=== PATIENT | male | born 1935 | race Caucasian/White ===

== ENCOUNTER 2019-02-10 02:06 | Outpatient (CLI) | payer SELFPAY | END 2019-02-10 23:59 | disposition home or self-care (01) | LOC: HW VAS 02:06 | DX: Z13.6 Encounter for screening for cardiovascular disorders (principal) ==

== ENCOUNTER 2021-05-24 06:01 | Day surgery (SDC) | payer MEDICARE ==
[2021-05-23 15:34] LABS: BASOPHILS # (AUTO) 0.1 X10'3 (0-0.2); EOSINOPHILS # (AUTO) 0.3 X10'3 (0-0.9); EOSINOPHILS % (AUTO) 3.4 % (0-6); HEMATOCRIT 44.1 % (42.0-52.0); HEMOGLOBIN 14.7 g/dl (14.0-17.9); LYMPHOCYTES # (AUTO) 3.3 X10'3 (1.1-4.8); MEAN CORPUSCULAR HEMOGLOBIN 32.6 PG (27.0-31.0); MEAN CORPUSCULAR HGB CONC 33.4 g/dL (33.0-36.5); MEAN CORPUSCULAR VOLUME 97.4 FL (78-98); MEAN PLATELET VOLUME 7.5 FL (7.4-10.4); MONOCYTES # (AUTO) 0.9 X10'3 (0-0.9); NEUTROPHILS # (AUTO) 5.4 X10'3 (1.8-7.7); NEUTROPHILS % (AUTO) 53.6 % (42-75); PLATELET COUNT 272 X10'3 (140-440); RED BLOOD COUNT 4.53 X10'6 (4.70-6.10); RED CELL DISTRIBUTION WIDTH 13.4 % (11.5-14.5); WHITE BLOOD COUNT 10.1 X10'3 (4.5-11.0)
[2021-05-23 15:43] LABS: PARTIAL THROMBOPLASTIN TIME 28 SECONDS (22-32)
[2021-05-23 15:46] LABS: ALBUMIN 3.8 G/DL (3.4-5.0); ANION GAP 9 (8-16); BLOOD UREA NITROGEN 21 MG/DL (7-18); BUN/CREATININE RATIO 16.4 (5.4-32.0); CHLORIDE 103 MMOL/L (99-107); CREATININE 1.28 MG/DL (0.60-1.10); GLUCOSE 89 MG/DL (70-104); POTASSIUM 4.4 MMOL/L (3.5-5.1); SODIUM 139 MMOL/L (135-145); TOTAL CARBON DIOXIDE 26.6 MMOL/L (24-32); eGFR 53 ML/MIN
[~2021-05-24] VITALS: Ht 172.7 cm; Wt 71.0 kg
[2021-05-24] VITALS (13 sets, daily range): BP systolic 125–147; BP diastolic 67–79
[2021-05-24] MEDS ORDERED: normal saline 1,000 ML IV SCH (06:20)
[2021-05-24] MEDS ORDERED: SOTA80TA73 PO (06:46)
[2021-05-24] MEDS ORDERED: SIMV10TA98 PO (06:46)
[2021-05-24] MEDS ORDERED: ASCO-139 PO (06:46)
[2021-05-24] MEDS ORDERED: LOSA25TA96 PO (06:46)
[2021-05-24] MEDS ORDERED: ASPI-1265 PO (06:46)
[2021-05-24] MEDS ORDERED: OMEG-147 PO (06:46)
[2021-05-24] MEDS ORDERED: ERGO400C PO (06:46)
[2021-05-24] MEDS ORDERED: ceFAZolin 1000mg inj ONE (07:17)
[2021-05-24] MEDS ORDERED: LIDOcaine 1% w/EPI 1:100,000 30ml vial (MDV) ONE (07:17)
[2021-05-24] MEDS ORDERED: cefazolin/dext.iso 2gm/100ml 100 ML IV ONE (07:35)
[2021-05-24] MEDS ORDERED: fentaNYL/PF 50MCG/1 ML 2ML syringe ONE (07:57)
[2021-05-24] MEDS ORDERED: midazolam 1 mg/ML 2ml injection ONE (07:57)
[2021-05-24] MEDS ORDERED: iohexol 350 MG/ML 50ML vial IV ONE (08:21)
--- NOTE | 2021-05-24 09:30 | NUR ---
Report given to Melinda CALDERON. Patient back from procedure. Left upper chest dressing CDI with pressure dressing in place.
[2021-05-24] MEDS ORDERED: HYDROcodone/acetaminophen 10/325mg tab PO PRN (09:50)
[2021-05-24] MEDS ORDERED: HYDROcodone/acetaminophen 5mg/325mg tablet PO PRN (09:50)
[2021-05-24] MEDS ORDERED: vancomycin/NS 1 GM ADD-VANTAGE 250 ML X 1 DOSE IV ONE (11:00)
== END 2021-05-24 15:05 | disposition home or self-care (01) ==
LOC: SSTAY O 06:01
PROVIDERS: ATTEND Internal Medicine Cardiovascular Disease
DX: I49.5 Sick sinus syndrome (principal); I10 Essential (primary) hypertension; I48.0 Paroxysmal atrial fibrillation; E78.49 Other hyperlipidemia; M13.88 Other specified arthritis, other site; F17.210 Nicotine dependence, cigarettes, uncomplicated; Z79.01 Long term (current) use of anticoagulants; Z79.82 Long term (current) use of aspirin; Z79.899 Other long term (current) drug therapy; Z85.828 Personal history of other malignant neoplasm of skin; Z98.890 Other specified postprocedural states
CPT/HCPCS: 33208; 71046; 80048; 85025; 85610; 85730; 93005; 99152; 99153; C1785; C1894; C1898; J0690; J2250; J3010; J3370; J7030; Q9967; A4620; A6258; A6449

== ENCOUNTER 2022-09-11 06:53 | Day surgery (SDC) | payer MEDICARE ==
[~2022-09-11] VITALS: Ht 172.7 cm; Wt 71.7 kg
[2022-09-11] VITALS (13 sets, daily range): BP systolic 105–150; BP diastolic 60–75
[~2022-09-11 06:53] MED LIST: ASCO-139 PO; ASPI-1265 PO; ERGO400C PO; LOSA25TA96 PO; OMEG-147 PO; SIMV10TA98 PO; SOTA80TA73 PO
[2022-09-11 07:55] LABS: BASOPHILS # (AUTO) 0.1 X10'3 (0-0.2); BASOPHILS % (AUTO) 1.1 % (0-1); EOSINOPHILS # (AUTO) 0.6 X10'3 (0-0.9); HEMATOCRIT 50.1 % (42.0-52.0); HEMOGLOBIN 16.5 g/dl (14.0-17.9); LYMPHOCYTES # (AUTO) 3.8 X10'3 (1.1-4.8); LYMPHOCYTES % (AUTO) 34.5 % (21-51); MEAN CORPUSCULAR HEMOGLOBIN 32.5 PG (27.0-31.0); MEAN CORPUSCULAR HGB CONC 32.9 g/dL (33.0-36.5); MEAN CORPUSCULAR VOLUME 98.8 FL (78-98); MEAN PLATELET VOLUME 7.2 FL (7.4-10.4); MONOCYTES # (AUTO) 1.1 X10'3 (0-0.9); MONOCYTES % (AUTO) 9.8 % (2-12); NEUTROPHILS # (AUTO) 5.5 X10'3 (1.8-7.7); NEUTROPHILS % (AUTO) 49.6 % (42-75); PLATELET COUNT 324 X10'3 (140-440); RED BLOOD COUNT 5.07 X10'6 (4.70-6.10); RED CELL DISTRIBUTION WIDTH 13.2 % (11.5-14.5); WHITE BLOOD COUNT 11.1 X10'3 (4.5-11.0)
[2022-09-11] MEDS ORDERED: diphenhydrAMINE 25mg capsule PO PRN (08:05)
[2022-09-11] MEDS ORDERED: LORazepam 0.5 MG tablet PO PRN (08:05)
[2022-09-11] MEDS ORDERED: normal saline 1,000 ML IV SCH (08:05)
[2022-09-11 08:25] LABS: ALBUMIN 4.3 G/DL (3.4-5.0); ANION GAP 10 (8-16); BLOOD UREA NITROGEN 23 MG/DL (7-18); BUN/CREATININE RATIO 16.3 (5.4-32.0); CALCIUM 9.4 MG/DL (8.5-10.1); CHLORIDE 100 MMOL/L (99-107); CREATININE 1.41 MG/DL (0.60-1.10); GLUCOSE 98 MG/DL (70-104); POTASSIUM 3.9 MMOL/L (3.5-5.1); SODIUM 136 MMOL/L (135-145); TOTAL CARBON DIOXIDE 26.2 MMOL/L (24-32); eGFR 48 ML/MIN
[2022-09-11] MEDS ORDERED: nitroGLYCERIN-Tridil 50MG/D5W 250 ML IV ONE (08:29)
[2022-09-11] MEDS ORDERED: verapamil 2.5 mg/ml inj IV ONE (08:30)
[2022-09-11] MEDS ORDERED: FENTANYL CITRATE/PF 50 MCG/1 ML VIAL ONE (08:30)
[2022-09-11] MEDS ORDERED: midazolam 1 mg/ML 2ml injection ONE (08:30)
[2022-09-11] MEDS ORDERED: heparin 1,000unit/ml 10ml vial 10 ML ONE (08:30)
[2022-09-11] MEDS ORDERED: iohexol 350MG/ML 100ml bottle IV ONE ×2 (08:30→09:39)
[2022-09-11] MEDS ORDERED: LIDOcaine 1% 30ml preserv. free vial ONE (08:30)
[2022-09-11] MEDS ORDERED: LIDOcaine 1% (10mg/ml) 2ml vial ONE (08:36)
[2022-09-11 08:41] LABS: APTT 29 SECONDS (22-32)
[2022-09-11] MEDS ORDERED: AMLO5TAB PO (08:46)
[2022-09-11] MEDS ORDERED: CHOL500050 PO (08:46)
[2022-09-11] MEDS ORDERED: LOSA100T57 PO (08:46)
[2022-09-11] MEDS ORDERED: IBUP-1984 PO (08:48)
[2022-09-11] MEDS ORDERED: Prevagen PO (08:48)
[2022-09-11] MEDS ORDERED: sodium bicarbonate (8.4%) inj. 150 ML in dextrose 5%-water 850 ML IV ONE (09:20)
[2022-09-11] MEDS ORDERED: iohexol 350 MG/ML 50ML vial IV ONE (09:41)
[2022-09-11] MEDS ORDERED: sodium bicarbonate (8.4%) inj. 150 MEQ in dextrose 5%-water 850 ML IV ONE (10:40)
[2022-09-11] MEDS: acetylcysteine 200 MG/ml 4ml vial PO PRN ×2 (11:05→15:53)
== END 2022-09-11 15:55 | disposition home or self-care (01) ==
LOC: SSTAY O 06:53
PROVIDERS: ATTEND Internal Medicine Cardiovascular Disease
DX: I25.10 Atherosclerotic heart disease of native coronary artery without angina pectoris (principal); Z79.01 Long term (current) use of anticoagulants; Z79.899 Other long term (current) drug therapy; E78.5 Hyperlipidemia, unspecified; I48.11 Longstanding persistent atrial fibrillation; I47.1 Supraventricular tachycardia; I10 Essential (primary) hypertension; Z98.890 Other specified postprocedural states; Z85.828 Personal history of other malignant neoplasm of skin; Z79.82 Long term (current) use of aspirin; Z95.0 Presence of cardiac pacemaker
CPT/HCPCS: 36415; 76937; 80048; 85025; 85610; 85730; 93005; 93458; 93571; 99152; 99153; A6258; C1751; C1769; C1894; J1644; J2250; J3010; J3490; J7030; J7070; Q9967; A6402; C1725

== ENCOUNTER 2024-09-23 07:34 | Day surgery (SDC) | payer MEDICARE ==
[2024-09-23] VITALS (22 sets, daily range): BP systolic 106–147; BP diastolic 50–87; PULSE 65–83; RESP 13–21; TEMP 98.2; O2SAT 93–99
[~2024-09-23] VITALS: Ht 172.7 cm; Wt 66.0 kg
[~2024-09-23 07:34] MED LIST changes: +AMLO5TAB PO; +CHOL500050 PO; -ERGO400C PO; +IBUP-1984 PO; +LOSA100T58 PO; -LOSA25TA96 PO; -OMEG-147 PO; +Prevagen PO
[2024-09-23] MEDS ORDERED: atropine 0.1mg/ml 10ml syringe IV ONE (07:55)
[2024-09-23] MEDS ORDERED: LORazepam 0.5 MG tablet PO ONE (07:55)
[2024-09-23] MEDS ORDERED: diphenhydrAMINE 25mg capsule PO ONE (07:55)
[2024-09-23 08:22] LABS: BASOPHILS # (AUTO) 0.1 X10'3 (0-0.2); BASOPHILS % (AUTO) 0.8 % (0-1); EOSINOPHILS # (AUTO) 0.2 X10'3 (0-0.9); EOSINOPHILS % (AUTO) 1.3 % (0-6); HEMATOCRIT 39.5 % (42.0-52.0); HEMOGLOBIN 13.1 g/dl (14.0-17.9); LYMPHOCYTES # (AUTO) 2.8 X10'3 (1.1-4.8); LYMPHOCYTES % (AUTO) 24.5 % (21-51); MEAN CORPUSCULAR HEMOGLOBIN 32.5 PG (27.0-31.0); MEAN CORPUSCULAR HGB CONC 33.1 g/dL (33.0-36.5); MEAN CORPUSCULAR VOLUME 98.1 FL (78-98); MEAN PLATELET VOLUME 6.6 FL (7.4-10.4); MONOCYTES # (AUTO) 0.9 X10'3 (0-0.9); MONOCYTES % (AUTO) 7.9 % (2-12); NEUTROPHILS # (AUTO) 7.5 X10'3 (1.8-7.7); NEUTROPHILS % (AUTO) 65.5 % (42-75); PLATELET COUNT 300 X10'3 (140-440); RED BLOOD COUNT 4.02 X10'6 (4.70-6.10); WHITE BLOOD COUNT 11.5 X10'3 (4.5-11.0)
[2024-09-23 08:28] LABS: ALBUMIN 3.2 G/DL (3.4-5.0); ANION GAP 8 (8-16); BLOOD UREA NITROGEN 18 MG/DL (7-18); BUN/CREATININE RATIO 16.4 (10.0-20.0); CALCIUM 8.8 MG/DL (8.5-10.1); CHLORIDE 102 MMOL/L (99-107); GLUCOSE 94 MG/DL (70-104); POTASSIUM 4.4 MMOL/L (3.5-5.1); SODIUM 135 MMOL/L (135-145); TOTAL CARBON DIOXIDE 25.1 MMOL/L (24-32); eGFR 63 ML/MIN
[2024-09-23] MEDS ORDERED: RIVA15TA PO (08:39)
[2024-09-23] MEDS ORDERED: ROSU20TA98 PO (08:39)
[2024-09-23] MEDS ORDERED: METO-384 PO (08:39)
[2024-09-23] MEDS ORDERED: AMI200T PO (08:39)
[2024-09-23 08:40] LABS: INR 1.4 INR
[2024-09-23 08:48] LABS: PROTHROMBIN TIME 14.6 SECONDS (9.0-12.0)
[2024-09-23] MEDS: normal saline 1000ml 1,000 ML IV SCH (08:51)
[2024-09-23] MEDS: morphine 10mg/ml inj. IV ONE (08:51)
[2024-09-23] MEDS: MIDAZolam 1mg/ml 10ml vial IV ONE (08:51)
[2024-09-23] MEDS: amiodarone 150mg/dext, iso-os 100 ML IV ONE (11:50)
== END 2024-09-23 12:05 | disposition home or self-care (01) ==
LOC: SSTAY O 07:34
PROVIDERS: ATTEND Internal Medicine Cardiovascular Disease
DX: I48.0 Paroxysmal atrial fibrillation (principal); I49.5 Sick sinus syndrome; I10 Essential (primary) hypertension; E78.5 Hyperlipidemia, unspecified; I25.2 Old myocardial infarction; I25.10 Atherosclerotic heart disease of native coronary artery without angina pectoris
CPT/HCPCS: 36415; 80048; 85025; 85610; 92960; 93005; J0282; J2250; J2270; J7030; Z7610; J2274